=== PATIENT | male | born 1935 | race Caucasian/White ===

== ENCOUNTER → 2024-12-01 | Outpatient (CLI) | payer MEDICARE, OTHER ==
[~2024-12-01] MED LIST: ASPI-1406 PO; ATOR20TA PO; MULT-1146 PO
== END | disposition home or self-care (01) ==
LOC: RAD 13:49
PROVIDERS: ATTEND Internal Medicine Critical Care Medicine
DX: R05.9 Cough, unspecified (principal); I51.7 Cardiomegaly
CPT/HCPCS: 71046